=== PATIENT | male | born 1995 | race Caucasian/White ===

== ENCOUNTER 2016-10-06 09:37 | Emergency (ER) | payer OTHER ==
[~2016-10-06] VITALS: Ht 175.3 cm; Wt 75.6 kg
[2016-10-06] MEDS ORDERED: SODIUM CHLORIDE 0.9% 1,000 ML IV ONE (10:04)
[2016-10-06] MEDS ORDERED: SODIUM CHLORIDE 0.9% 1,000ML IVBOLUS ONE (10:30)
[2016-10-06] MEDS ORDERED: ONDANSETRON 2MG/ML, 2ML IVPush ONE (10:30)
[2016-10-06] MEDS ORDERED: MAALOX/HYOSCYAMINE/LIDOCAINE 45 ML BOTTLE PO ONE (10:30)
[2016-10-06] MEDS ORDERED: FAMOTIDINE 20 MG/2 ML IVP ONE (10:30)
[2016-10-06] MEDS ORDERED: ONDANSETRON 2MG/ML, 2ML ONE (10:34)
[2016-10-06] MEDS ORDERED: FAMOTIDINE 20 MG/2 ML ONE (10:34)
[2016-10-06] MEDS ORDERED: MAALOX/HYOSCYAMINE/LIDOCAINE 45 ML BOTTLE ONE (10:34)
[2016-10-06 10:56] LABS: BLOOD UREA NITROGEN 20 mg/dL (7-18)
[2016-10-06 10:59] LABS: ASPARTATE AMINO TRANSFERASE 19 U/L (15-37)
[2016-10-06 12:46] VITALS: BP 108/63
== END 2016-10-06 12:48 | disposition home or self-care (01) ==
LOC: ED 09:56
DX: G43.A1 Cyclical vomiting, in migraine, intractable (principal)
CPT/HCPCS: 36415; 80053; 83690; 85025; 96361; 96374; 96375; 99284; J2405; J7030; S0028